=== PATIENT | male | born 2000 | race African-American/Black ===

== ENCOUNTER 2019-12-16 17:00 | Emergency (ER) | payer MEDICAID, OTHER ==
[~2019-12-16] VITALS: Ht 177.8 cm; Wt 74.0 kg
--- NOTE | 2019-12-16 17:27 | ED General ---
General Chief Complaint: Laceration Stated Complaint: FACIAL LACERATION Source of Information: Patient History of Present Illness Date Seen by Provider: Dec 16, 2019 Time Seen by Provider: 17:23 Initial Comments Patient is an otherwise healthy 19-year-old male who comes to the emergency department for a minor laceration on the forehead. Patient was walking in his dormitory overly wet floor when he lost his balance and tripped and struck his head on a piece of furniture. Incident happened just prior to presentation. He sustained a minor laceration over the right side of his forehead. No loss of consciousness. No vision changes. No nausea or vomiting. No neck pain. He did not sustain additional injuries. He is otherwise healthy and fully immunized. Allergies and Home Medications Patient Home Medication List Home Medication List Reviewed: Yes Review of Systems Review of Systems Constitutional: no symptoms reported EENTM: no symptoms reported Respiratory: no symptoms reported Cardiovascular: no symptoms reported Genitourinary: no symptoms reported Musculoskeletal: no symptoms reported Skin: see HPI Past Ckbkuzu-Pvgcpu-Xifbty Hx Patient Social History Recent Foreign Travel: No Physical Exam Vital Signs Capillary Refill : Height, Weight, BMI Height: '" Weight: lbs. oz. kg; BMI Method: General Appearance: No Apparent Distress, WD/WN HEENT: PERRL/EOMI, TMs Normal, Pharynx Normal, Other (0.5 centimeter laceration over the right side of forehead. 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 He has a minor laceration described above. Sutures were placed. Patient tolerated well. No indication for CT scan today. Patient was discharged home with wound care precautions and will come back to the ER in 5-6 days for suture removal. QUESTIONS were answered prior to discharge home and he was agreeable to the plan of care. Tylenol as needed for discomfort. Departure Impression Primary Impression: Forehead laceration Disposition: 01 HOME, SELF-CARE Condition: Improved DANNIELLE GRANT DO Dec 16, 2019 17:27
[2019-12-16 17:32] VITALS: BP 136/66
--- OUTSIDE RECORDS SUMMARY | 2019-12-24 16:15 | XMS REPORT | Continuity of Care Document ---
Author Organization Unknown Address Unknown Phone Unavailable Allergies There is no data. Medications There is no data. Problems There is no data. Procedures There is no data. Results There is no data. Encounters ACCT No. Visit Date/Time Discharge Status Pt. Type Provider Facility Loc./Unit Complaint [id number] 12/16/2019 16:40:00 12/16/2019 23:59: 59 [facility] [id number] 12/16/2019 17:02:00 020 17:35:00 DIS Emergency DANNIELLE GRANT DO Via [facility] ER FS FACIAL LACERATION
== END 2019-12-16 17:35 | disposition home or self-care (01) ==
LOC: ER FS 17:02
DX: S01.81XA Laceration without foreign body of other part of head, initial encounter (principal); W01.190A Fall on same level from slipping, tripping and stumbling with subsequent striking against furniture, initial encounter

== ENCOUNTER 2019-12-24 20:17 | Emergency (ER) | payer MEDICAID ==
[~2019-12-24] VITALS: Ht 177.8 cm; Wt 74.4 kg
--- NOTE | 2019-12-24 20:31 | ED Suture Removal/Wound Check ---
Suture/Wound Re-check Suture Removal/Wound Recheck : Suture Removal/Wound Recheck: Sutures removed by RN General Appearance: WD/WN, no apparent distress Neuro/Tendon: normal sensation, normal motor functions, normal tendon functions Skin Exam: normal color, warm/dry Physical Exam Vital Signs Vital Signs - First Documented 12/24/19 20:22 Temp 37.0 Pulse 69 Resp 16 B/P (MAP) 127/69 Pulse Ox 100 O2 Delivery Room Air Capillary Refill : General Appearance: WD/WN, no apparent distress Departure Impression Primary Impression: Encounter for removal of sutures Disposition: HOME, SELF-CARE Condition: Stable Departure-Patient Inst. Decision time for Depature: 20:31 Referrals: NO,LOCAL PHYSICIAN (PCP/Family) Primary Care Physician Patient Instructions: SUTURE REMOVAL - UNCOMPLICATED Add. Discharge Instructions: All discharge instructions reviewed with patient and/or family. Voiced understanding. ABEL RIVERA MD Dec 24, 2019 20:31
[2019-12-24 20:33] VITALS: BP 127/69
== END 2019-12-24 20:33 | disposition home or self-care (01) ==
LOC: EDUNIT# 20:17 → ER FS 20:18
DX: S01.81XD Laceration without foreign body of other part of head, subsequent encounter (principal); X58.XXXD Exposure to other specified factors, subsequent encounter

== ENCOUNTER 2020-01-03 20:47 | Emergency (ER) | payer MEDICAID ==
[~2020-01-03] VITALS: Ht 177.8 cm; Wt 75.7 kg
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
--- NOTE | 2020-01-03 21:29 | Diagnostic Imaging Report ---
INDICATION: Back pain. EXAMINATION: Three views of the lumbar spine were obtained. FINDINGS: Alignment, vertebral body heights and disc spaces are within normal limits. There is no spondylolysis or spondylolisthesis. There is no acute fracture or traumatic subluxation. IMPRESSION: No acute radiographic abnormality. Dictated by: Dictated on workstation # [id number]
[2020-01-03] MEDS ORDERED: BACL10TA PO (21:37)
[2020-01-03] MEDS ORDERED: IBUP-1780 PO (21:37)
[2020-01-03 21:45] VITALS: BP 132/82
[2020-01-03] MEDS ORDERED: CYCLOBENZAPRINE 10 MG (FLEXERIL) TAB ONE (21:45)
[2020-01-03] MEDS ORDERED: CYCLOBENZAPRINE 10 MG (FLEXERIL) TAB PO STA (21:49)
== END 2020-01-03 21:41 | disposition home or self-care (01) ==
LOC: EDUNIT# 20:47 → ER FS 20:48
DX: S39.012A Strain of muscle, fascia and tendon of lower back, initial encounter (principal); X58.XXXA Exposure to other specified factors, initial encounter
CPT/HCPCS: 72100